=== PATIENT | male | born 1990 | race Caucasian/White ===

== ENCOUNTER 2017-09-30 18:26 | Emergency (ER) | payer OTHER ==
[~2017-09-30] VITALS: Ht 177.8 cm; Wt 63.5 kg
[~2017-09-30 18:26] MED LIST: PROVENTIL HFA6.7 GM INH
[2017-09-30] MEDS ORDERED: XANAX2 MG PO (18:50)
[2017-09-30] MEDS ORDERED: SUBOXONE 8 MG-1 EAC1 SL (18:51)
[2017-09-30] MEDS ORDERED: ZOFRAN ODT4 MG PO (21:28)
--- NOTE | 2017-10-01 07:18 | EKG ---
[facility] [address] [facility] [place] [address] Signed Sinus rhythm with occasional premature ventricular complexes Otherwise normal ECG No previous ECGs available Confirmed by TACOS DAWN MD ([id number]) on 10/01/2017 7:18:43 AM Electronically Signed By: TACOS DAWN MD 10/01/17 0718 PATIENT NAME: MARTIN HERNANDEZ Electrocardiogram DATE OF : 89 PHYSICIAN: TACOS DAWN MD REPORT #: [id number] REPORT IS CONFIDENTIAL AND NOT TO BE RELEASED WITHOUT AUTHORIZATION
== END 2017-09-30 21:52 | disposition home or self-care (01) ==
LOC: ED 18:26
PROC: 0T9B70Z Drainage of Bladder with Drainage Device, Via Natural or Artificial Opening (ICD-10-PCS; principal; 2017-09-30)
DX: F11.23 Opioid dependence with withdrawal (principal); F19.10 Other psychoactive substance abuse, uncomplicated
CPT/HCPCS: 36415; 51701; 71010; 80053; 84484; 85025; 93005; 93010; 96374; 99284; G0480; J2405; J7030

== ENCOUNTER 2018-04-15 13:23 | Emergency (ER) | payer OTHER ==
[~2018-04-15] VITALS: Ht 177.8 cm; Wt 63.5 kg
[~2018-04-15 13:23] MED LIST changes: +SUBOXONE 8 MG-1 EAC1 SL; +XANAX2 MG PO; +ZOFRAN ODT4 MG PO
== END 2018-04-15 15:04 | disposition left against medical advice (07) ==
LOC: ED 13:23
DX: Z53.21 Procedure and treatment not carried out due to patient leaving prior to being seen by health care provider (principal)

== ENCOUNTER 2018-07-18 04:58 | Emergency (ER) | payer OTHER ==
[~2018-07-18] VITALS: Ht 177.8 cm; Wt 68.0 kg
--- OUTSIDE RECORDS SUMMARY | ~2018-07-18 | XMS | Encounter Summary ---
Demographics + + + | Address | [address] | | | [place] [address] | + + + | Home Phone | | + + + | Preferred Language | Unknown | + + + | Marital Status | Single | + + + | Hinduism Affiliation | Unknown | + + + | Race | White | + + + | Ethnic Group | Not or | + + + Author + + + | Author | [facility] | + + + | Organization | [facility] | + + + | Address | Unknown | + + + | Phone | Unavailable | + + + Support + + +---------+ + | Name | Relationship | Address | Phone | + + +---------+ + | Eusebio Winston | ECON | Unknown | | + + +---------+ + Care Team Providers + +------+ + | Care Balance And Hairspring Assembler Name | Role | Phone | + +------+ + | Minerva Ca MD | PCP | | + +------+ + Reason for Visit + + + | Reason | Comments | + + + | New Patient Visit | Here to establish | + + + | Anxiety | | + + + Encounter Details +--------+---------+ + + + | Date | Type | Department | Care Team | Description | +--------+---------+ + + + | 07/08/ | Office | [facility] | Minerva Ca MD | Anxiety (Primary | | 2018 | Visit | Medicine [address] | Dx); Mild | | | | [address] [place], | [place] [address] | intermittent asthma | | | | [place] [address] | [phone] | without | | | | [phone] | | complication; | | | | | | Dysthymia; History | | | | | | of drug use | +--------+---------+ + + + Social History + +-------+ +--------+------+ | Tobacco Use | Types | Packs/Day | Years | Date | | | | | Used | | + +-------+ +--------+------+ | Never Smoker | | | | | + +-------+ +--------+------+ + +---+---+---+ | Smokeless Tobacco: | | | | | Never Used | | | | + +---+---+---+ + + | Comments: occassion | + + + + + | Sex Assigned at | Date Recorded | | | | + + + | Not on file | | + + + as of this encounter Last Filed Vital Signs + + + + | Vital Sign | Reading | Time Taken | + + + + | Blood Pressure | 126/80 | 07/08/2018 4:21 PM PDT | + + + + | Pulse | 61 | 07/08/2018 4:21 PM PDT | + + + + | Temperature | 36.9 C (98.4 F) | 07/08/2018 4:21 PM PDT | + + + + | Respiratory Rate | - | - | + + + + | Oxygen Saturation | 99% | 07/08/2018 4:21 PM PDT | + + + + | Inhaled Oxygen | - | - | | Concentration | | | + + + + | Weight | 64.8 kg (142 lb 12.8 | 07/08/2018 4:21 PM PDT | | | oz) | | + + + + | Height | - | - | + + + + | Body Mass Index | - | - | + + + + in this encounter Instructions Patient Instructions - Minerva Ca MD - 07/08/2018 4:20 PM PDTPlease let us know if the inhalers are expensive and we will see if we can help You. Exercise and healthy eating really help anxiety so do your best to keep up with that. Flovent steroid inhaler is twice daily. Please rinse mouth after use. in this encounter Progress Notes Minerva Ca MD - 07/08/2018 4:20 PM PDTFormatting of this note may be different from blanco martinez. SUBJECTIVE CC: Chief Complaint Patient presents with New Patient Visit Here to establish Anxiety HPI: Ike Montero is a 27 y.o. male living in the [facility]. Will be here a few months. in [facility] is retiring. Anxiety - buspar and celexa in the past. Off them for months. [place] [address] since he was a little kid. Gets too worked up. Gets overwhelmed. Worry's a lot. Transitioning to new job hoping that will help. Feels palpitations. Sometimes his heart is racing. Lately depressed waking up. Noticed that for a couple of years. No thoughts of self harm. Sometimes sleeps well. Wakes up and has bad dreams. Appetite - lost weight (was 170). Last job pretty active maybe wasn't eating enough. Diana y was tight so wasn't hardly buying food. Motivation is there - not a problem. When problems arise can't handle it. Went to ER was hyperventilating, panic attack, left w ithout being seen. His muscles were cramping. Has hope for the future. Likes fishing, hunting. Still able to enjoy things. Street drugs - opiates, buprenorphine, benzodiazepines - 4-5 months Pills, no IV drug use. REVIEW OF SYSTEMS: Review of Systems Constitutional: Positive for weight loss. Negative for chills and fever. HENT: Negative for hearing loss and tinnitus. Eyes: Negative for blurred vision and double vision. Respiratory: Positive for shortness of breath and wheezing. Negative for cough. Cardiovascular: Negative for chest pain. Palpitations with anxiety or random Gastrointestinal: Positive for blood in stool. Negative for constipation and diarrhea. Genitourinary: Negative for dysuria. Musculoskeletal: Negative for back pain and joint pain. Skin: Negative. Neurological: Negative for dizziness and headaches. Endo/Heme/Allergies: Negative for polydipsia. Psychiatric/Behavioral: Positive for depression. Negative for suicidal ideas. The patient i s nervous/anxious and has insomnia. Current Medications: Current Outpatient Prescriptions Medication Sig VENTOLIN HFA 90 mcg/actuation inhalation HFA aerosol inhaler No current facility-administered medications for this visit. Allergies/Adverse Drug Reactions: No Known Allergies Social History Substance Use Topics Smoking status: Never Smoker Smokeless tobacco: Never Used Alcohol use Not on file OBJECTIVE BP 126/80 | Pulse 61 | Temp (Src) 36.9 C (98.4 F) (Oral) | Wt 64.8 kg (142 lb 12.8 oz) | SpO2 99% There is no height or weight on file to calculate BMI. Physical Exam Constitutional: He is oriented to person, place, and time and well-developed, well-nourishe d, and in no distress. HENT: Head: Normocephalic and atraumatic. Eyes: EOM are normal. Neck: Neck supple. Cardiovascular: Normal rate, regular rhythm and normal heart sounds. Exam reveals no frict ion rub. No murmur heard. Pulmonary/Chest: Effort normal and breath sounds normal. No respiratory distress. He has no wheezes. Musculoskeletal: Normal range of motion. Neurological: He is alert and oriented to person, place, and time. Gait normal. Skin: Skin is warm and dry. Psychiatric: Poor eye contact, shifting in seat, constantly moving ASSESSMENT/PLAN We appreciate the opportunity of participating in Mr. Montero's care. Follow up in Family Medicine clinic in 1 month Ike was seen today for new patient visit and anxiety. Diagnoses and all orders for this visit: Anxiety Comments: citalopram 20mg daily and burpirone 10mg tid - this regimen worked well for him in the past . Declined BH at this time. Orders: - citalopram (CELEXA) 20 mg oral tablet; Take 1 tablet by mouth once daily. Indications : Anxiety with Depression - busPIRone 10 mg oral tablet; Take 1 tablet by mouth three times daily. Indications: G eneralized Anxiety Disorder Mild intermittent asthma without complication Comments: Inhaled steroid and albuterol prn. Orders: - VENTOLIN HFA 90 mcg/actuation inhalation HFA aerosol inhaler; Inhale 2 puffs by mouth every six hours as needed. Indications: asthma - fluticasone (FLOVENT HFA) 110 mcg/actuation inhalation HFA aerosol inhaler; Inhale 1 puff by mouth two times daily. Indications: Maintenance Therapy for Asthma Dysthymia Comments: Anxiety more of an issue than depression. Low affect > 2 years. Celexa 20mg daily. Orders: - citalopram (CELEXA) 20 mg oral tablet; Take 1 tablet by mouth once daily. Indications : Anxiety with Depression History of drug use Comments: From chart review. Pt reports to being clean at this time. Lakeshia Lopez MA - 07/08/2018 4:20 PM PDTFormatting of this note may be different from the original. Ike Montero is a 27 y.o. male who is in clinic today alone. Chief Complaint Patient presents with New Patient Visit Here to establish Anxiety MARK ANTHONY Questionnaire Feeling nervous, anxious, or on edge: 2 Not being able to stop or control worryin Worrying too much about different things: 2 Having trouble relaxin Being so restless that it is hard to sit still: 2 Becoming easily annoyed or irritable: 1 Feeling afraid as if something awful might happen: 1 TOTAL SCORE (5=mild; 10=moderate; 15=severe): 12 in this encounter Plan of Treatment +--------+---------+ + + + | Date | Type | Specialty | Care Team | Description | +--------+---------+ + + + | 08/05/ | Office | Family Practice | Minerva Ca MD | | | 2017 | Visit | | [address] [place] [address] The | | | | | | [place] [address] | | | | | | [phone] | | | | | | | | +--------+---------+ + + + as of this encounter Visit Diagnoses + + | Diagnosis | + + | Anxiety - Primary | + + | Anxiety state, unspecified | + + | Mild intermittent asthma without complication | + + | Unspecified asthma | + + | Dysthymia | + + | Dysthymic disorder | + + | History of drug use | + +"
--- OUTSIDE RECORDS SUMMARY | ~2018-07-18 | XMS | Clinical Summary ---
Demographics + + + | Address | [address] | | | [place] [address] | + + + | Home Phone | | + + + | Preferred Language | Unknown | + + + | Marital Status | Single | + + + | Pentecostal Affiliation | Unknown | + + + | Race | White | + + + | Ethnic Group | Not or | + + + Author + + + | Author | [facility] | + + + | Organization | [facility] | + + + | Address | Unknown | + + + | Phone | Unavailable | + + + Support + + +---------+ + | Name | Relationship | Address | Phone | + + +---------+ + | Eusebio Hernandez | ECON | Unknown | | + + +---------+ + Care Team Providers + +------+ + | Care Harp Regulator Name | Role | Phone | + +------+ + | Minerva Ca MD | PP | | + +------+ + Source Comments ALBERT is fully live on both [facility] and [facility] InPatient.[facility] Allergies No Known Allergies Current Medications + + +---------+---------+------+------+-------+ | Prescription | Sig. | Disp. | Refills | Star | End | Statu | | | | | | t | Date | s | | | | | | Date | | | + + +---------+---------+------+------+-------+ | VENTOLIN HFA 90 | Inhale 2 puffs by | 1 | 1 | 09/ | | Activ | | mcg/actuation | mouth every six | Inhaler | | 2/20 | | e | | inhalation HFA | hours as needed. | | | 18 | | | | aerosol | Indications: asthma | | | | | | | inhalerIndications: | | | | | | | | asthma | | | | | | | + + +---------+---------+------+------+-------+ | citalopram | Take 1 tablet by | 30 | 1 | 09/1 | | Activ | | (CELEXA) 20 mg oral | mouth once daily. | tablet | | 2/20 | | e | | tabletIndications: | Indications: Anxiety | | | 18 | | | | Anxiety with | with Depression | | | | | | | Depression | | | | | | | + + +---------+---------+------+------+-------+ | busPIRone 10 mg | Take 1 tablet by | 90 | 1 | / | | Activ | | oral | mouth three times | tablet | | 2/20 | | e | | tabletIndications: | daily. Indications: | | | 18 | | | | Generalized Anxiety | Generalized Anxiety | | | | | | | Disorder | Disorder | | | | | | + + +---------+---------+------+------+-------+ | fluticasone | Inhale 1 puff by | 1 | 1 | 09/1 | | Activ | | (FLOVENT HFA) 110 | mouth two times | Inhaler | | 2/20 | | e | | mcg/actuation | daily. Indications: | | | 18 | | | | inhalation HFA | Maintenance Therapy | | | | | | | aerosol | for Asthma | | | | | | | inhalerIndications: | | | | | | | | Maintenance Therapy | | | | | | | | for Asthma | | | | | | | + + +---------+---------+------+------+-------+ Active Problems + + + | Problem | Noted Date | + + + | Mild intermittent asthma without complication | 07/08/2018 | + + + | Anxiety | 07/08/2018 | + + + | Dysthymia | 07/08/2018 | + + + | History of drug use | 07/08/2018 | + + + Encounters +--------+---------+ + + + | Date | Type | Specialty | Care Team | Description | +--------+---------+ + + + | 07/08/ | Office | | Minerva Ca MD | Anxiety (Primary | | 2018 | Visit | | | Dx); Mild | | | | | | intermittent asthma | | | | | | without | | | | | | complication; | | | | | | Dysthymia; History | | | | | | of drug use | +--------+---------+ + + + from Last 3 Months Immunizations + + + + | Name | Dates Previously Given | Next Due | + + + + | DTaP | 07/29/1995, 01/09/1993, 05/16/1992, | | | | 01/11/1992, 1991 | | + + + + | HepB-Peds | 11/12/2005, 01/08/2005, 11/13/2004 | | + + + + | Hib-HbOC | 01/09/1993, 05/16/1992, 01/11/1992, | | | | 1991 | | + + + + | MMR | 11/13/2004, 01/09/1993 | | + + + + | Polio-Oral | 07/29/1995, 01/09/1993, 01/11/1992, | | | | 1991 | | + + + + | Td (adult), 2 Lf | 01/08/2005 | | | tetanus toxoid, | | | | preservative free, | | | | adsorbed | | | + + + + Family History + + +------+ + | Medical History | Relation | Name | Comments | + + +------+ + | Hypertension | Brother | | | + + +------+ + | Thyroid disease | Father | | | + + +------+ + + +------+--------+ + | Relation | Name | Status | Comments | + +------+--------+ + | Brother | | Alive | | + +------+--------+ + | Father | | Alive | | + +------+--------+ + | Mother | | Alive | | + +------+--------+ + Social History + +-------+ +--------+------+ | [...] on file | | + + + Last Filed Vital Signs + + + [...] | - | + + + + Plan of Treatment +--------+---------+ + + + | Date | Type | Specialty | Care Team | Description | +--------+---------+ + + + | 08/05/ | Office | | Minerva Ca MD | | | 2017 | Visit | | [address] [place] [address] The | | | | | | [place] [address] | | | | | | [phone] | | | | | | | | +--------+---------+ + + + + + + + + | Health Maintenance | Due Date | Last Done | Comments | + + + + + | HIV SCREEN | | | | | | 1 | | | + + + + + | Diphtheria,Tetanus,P | | 01/08/2005, 07/29/1995, | | | ertussis | 5 | 01/09/1993, Additional history | | | (DTaP/Tdap/Td) (6 - | | exists | | | Tdap) | | | | + + + + + | INFLUENZA VACCINE | | | | | (FLU SHOT) | 8 | | | + + + + + | DEPRESSION | | 07/08/2018, 07/08/2018 | | | ASSESSMENT (PHQ9) | 9 | | | + + + + + | SUBSTANCE ABUSE | | 07/08/2018 | | | SCREENING | 9 | | | + + + + + Results Not on filefrom Last 3 Months Insurance + +--------+ +--------+-------+---------+ | Payer | Benefi | Subscriber | Type | Phone | Address | | | t Plan | ID | | | | | | / | | | | | | | Group | | | | | + +--------+ +--------+-------+---------+ | SENIOR BUDGET ANALYST MEDICAID | SENIOR BUDGET ANALYST | xxxxxxxx | Medica | | | | | [place] | | id | | | | | [place] | | | | | + +--------+ +--------+-------+---------+ + +--------+ +--------+ + + | Guarantor Name | Accoun | Relation to | Date | Phone | Billing Address | | | t Type | Patient | of | | | | | | | | | | + +--------+ +--------+ + + | MARTIN HERNANDEZ | Person | Self | [birth year] | Home: | [address] | | [place] | molly/Daryl | | 1989 | [phone] | [place] | | | kevin | | | [phone] | + +--------+ +--------+ + +"
--- OUTSIDE RECORDS SUMMARY | ~2018-07-18 | XMS | Encounter Summary ---
Demographics + + + | Address | [address] | | | [place] [address] | + + + | Home Phone | | + + + | Preferred Language | Unknown | + + + | Marital Status | Single | + + + | Gnosticist Affiliation | Unknown | + + + [...] Team Providers + +------+ + | Care Nail Specialist Name | Role | Phone | + [...] Mild | | | | [address] [place], | [place] [address] | intermittent asthma | | | | [place] [address] | [phone] | without | | | | [phone] | | complication; | | | | [...] a 27 y.o. male living in the [facility]. Will be here a few months. in [facility] is retiring. Anxiety - buspar and celexa in the past. Off them for months. [place] that [address] since he was a little [...] 2017 | Visit | | [address] [place] [address] The | | | | | | [place] [address] | | | | | | [phone] | | | | | | | [...]
--- OUTSIDE RECORDS SUMMARY | ~2018-07-18 | XMS | Clinical Summary ---
Demographics + + + | Address | [address] [facility] | | | [place] [address] | + + + | Home Phone [...] Team Providers + +------+ + | Care Form Setter [employer] Forms Name | Role | Phone | + +------+ + | Minerva Ca MD | PP | | + +------+ + Source Comments ALBERT is fully live on both [facility] Ambulatory and [facility] InPatient.[facility] Allergies No Known Allergies Current Medications + [...] 2017 | Visit | | [address] [place] [address] The | | | | | | [place] [address] | | | | | | [phone] | | | | | | | [...] | | | + +--------+ +--------+-------+---------+ | LINE HAUL DRIVER MEDICAID | LINE [employer]UL DRIVER | xxxxxxxx | Medica | | | [...] | | | [place] | | | [phone] | [phone] | + +--------+ +--------+ + +"
--- OUTSIDE RECORDS SUMMARY | 2018-07-18 05:04 | XMS ---
PreManage Notification: MARTIN HERNANDEZ Security Customer Solutions Representative Events 1 event(s) in the past 18 months Most recent security events: Elopement at [facility] 04/15/2018 13:23 - Patient eloped before treatment completed. Details: LWBS CRITERIA MET - Group Notification CARE PROVIDERS DANI TRIANA [facility] 07/08/2018-Current PHONE: Unknown DANI TRIANA Primary Care 07/08/2018-Current PHONE: [phone] Lio Delgado MD Treatment Current PHONE: Unknown Jose has no Care Guidelines for this patient. E.D. VISIT COUNT (12 MO.) 3 [facility] Umana TOTAL 3 NOTE: Visits indicate total known visits. ED/UCC VISIT TRACKING (12 MO.) 07/18/2018 04:59 [facility] [place] TYPE: Emergency COMPLAINT: - ISSUES SLEEPING/RESTLESS LEGS 04/15/2018 13:23 [facility] [place] TYPE: Emergency COMPLAINT: - ANXIETY ISSUES DIAGNOSES: - Procedure and treatment not carried out due to patient leaving prior to being seen by health care provider 09/30/2017 18:[address] [facility] [place] TYPE: Emergency COMPLAINT: - VOMITING DIAGNOSES: - Opioid dependence with withdrawal - Other psychoactive substance abuse, uncomplicated - Panic disorder [episodic paroxysmal anxiety] INPATIENT VISIT TRACKING (12 MO.) No inpatient visits to display in this time frame [email or web address]
[2018-07-18] MEDS ORDERED: BUSPIRONE HCL10 MG PO (05:07)
[2018-07-18] MEDS ORDERED: CELEXA20 MG PO (05:07)
[2018-07-18] MEDS ORDERED: VISTARIL25 MG PO (05:39)
== END 2018-07-18 05:56 | disposition home or self-care (01) ==
LOC: ED 04:58
DX: F11.23 Opioid dependence with withdrawal (principal); Z87.891 Personal history of nicotine dependence; Z79.899 Other long term (current) drug therapy
CPT/HCPCS: 99283

== ENCOUNTER 2018-11-19 20:54 | Observation (INO) | payer OTHER ==
[~2018-11-19] VITALS: Ht 177.8 cm; Wt 82.5 kg
[~2018-11-19 20:54] MED LIST changes: +BUSPIRONE HCL10 MG PO; +CELEXA20 MG PO; +L-THEANINE25 GM PO; +VENTOLIN HFA18 GM INH; +VISTARIL25 MG PO
--- OUTSIDE RECORDS SUMMARY | 2018-11-19 20:56 | XMS ---
PreManage Notification: MARTIN HERNANDEZ Security Resource Specialist Events 1 event(s) in the past 18 months Most recent security events: Elopement at [facility] 04/15/2018 13:23 - Patient eloped before treatment completed. Details: LWBS CRITERIA MET - Group Notification CARE PROVIDERS MARILOU WEBB Physician Pot Room Supervisor 07/20/2018-Current PHONE: [phone] DANI TRIANA [facility] 07/08/2018-Current PHONE: [phone] DANI TRIANA Primary Care 07/08/2018-Current PHONE: Unknown Jose has no Care Guidelines for this patient. E.D. VISIT COUNT (12 MO.) [address] [facility] TOTAL 4 NOTE: Visits indicate total known visits. ED/UCC VISIT TRACKING (12 MO.) 11/19/2018 20:54 [facility] [place] TYPE: Emergency COMPLAINT: - UNRESPONSIVE 10/04/2018 20:14 [facility] [place] TYPE: Emergency COMPLAINT: - UNRESPONSIVE OD 07/18/2018 04:59 [facility] [place] TYPE: Emergency COMPLAINT: - ISSUES SLEEPING/RESTLESS LEGS DIAGNOSES: - Opioid dependence with withdrawal - Insomnia, unspecified - Other usp (current) drug therapy - Personal history of nicotine dependence 04/15/2018 13:23 [facility] [place] TYPE: Emergency COMPLAINT: - ANXIETY ISSUES DIAGNOSES: - Procedure and treatment not carried out due to patient leaving prior to being seen by health care provider INPATIENT VISIT TRACKING (12 MO.) 10/04/2018 23:07 [facility] [place] TYPE: Critical Care COMPLAINT: - OVERDOSE DIAGNOSES: - Anxiety disorder, unspecified - Toxic encephalopathy - Poisoning by unspecified antiepileptic and sedative-hypnotic drugs, accidental (unintentional), initial encounter - Acute respiratory failure with hypoxia - Acute respiratory failure with hypercapnia - Hypomagnesemia - Personal history of nicotine dependence - Acute respiratory failure with hypoxia - Toxic encephalopathy - Anxiety disorder, unspecified - Personal history of nicotine dependence - Acute respiratory failure with hypercapnia - Hypomagnesemia - Anuria and oliguria - Anuria and oliguria [email or web address]
[2018-11-20] MEDS ORDERED: WELLBUTRIN XL150 MG PO (13:39)
[2018-11-20] MEDS ORDERED: METOPROLOL TART25 MG PO (13:40)
[2018-11-20] MEDS ORDERED: BUPROPION HCL75 MG PO (13:41)
--- NOTE | 2018-11-20 20:04 | EKG ---
[facility] [address] [place] [address] Signed Sinus rhythm with occasional premature ventricular complexes Otherwise normal ECG When compared with ECG of 04-OCT-2018 20:17, Borderline criteria for Inferior infarct are no longer present Confirmed by CAROL CHEN MD ([id number]) on 11/20/2018 8:04:06 PM Electronically Signed By: CAROL CHEN MD 11/20/182003 PATIENT NAME: MARTIN HERNANDEZ Electrocardiogram DATE OF : 89 PHYSICIAN: CAROL CHEN MD REPORT #: [id number] REPORT IS CONFIDENTIAL AND NOT TO BE RELEASED WITHOUT AUTHORIZATION
[2018-11-21] MEDS ORDERED: NAPROXEN500 MG PO (08:25)
== END 2018-11-21 12:00 | disposition home or self-care (01) ==
LOC: ED 20:54 → CCU 23:22 → ED 23:22 → CCU 23:23 → DSVR 23:30 → CCU 23:30 → DSVR 23:50 → CCU 23:50 → MS 11-20 09:42 → CCU 11-20 09:42 → MS 11-20 09:42 → CCU 11-20 09:43 → MS 11-20 09:43 → CCU 11-20 09:43
PROVIDERS: ADMIT Internal Medicine
PROC: 5A09357 Assistance with Respiratory Ventilation, Less than 24 Consecutive Hours, Continuous Positive Airway Pressure (ICD-10-PCS; principal; 2018-11-19)
DX: T42.6X1A Poisoning by other antiepileptic and sedative-hypnotic drugs, accidental (unintentional), initial encounter (principal); J96.02 Acute respiratory failure with hypercapnia; G92 Toxic encephalopathy; S93.402A Sprain of unspecified ligament of left ankle, initial encounter; F19.10 Other psychoactive substance abuse, uncomplicated; F41.8 Other specified anxiety disorders; X58.XXXA Exposure to other specified factors, initial encounter; Z79.899 Other long term (current) drug therapy; Z87.891 Personal history of nicotine dependence
CPT/HCPCS: 36415; 36600; 51702; 70450; 71260; 72125; 73610; 74177; 80053; 80176; 81001; 82150; 82550; 82803; 83690; 83735; 85025; 86850; 86900; 86901; 93005; 93010; 94660; 96372; 96374; 96375; 96376; 99285-25; G0378; G0480; J1650; J1885; J2405; J7120; Q9967

== ENCOUNTER 2021-03-31 14:43 | Emergency (ER) | payer OTHER ==
[~2021-03-31] VITALS: Ht 177.8 cm; Wt 90.7 kg
[~2021-03-31 14:43] MED LIST changes: +BUPROPION HCL75 MG PO; +METOPROLOL TART25 MG PO; +NAPROXEN500 MG PO; +WELLBUTRIN XL150 MG PO
--- OUTSIDE RECORDS SUMMARY | 2021-03-31 14:46 | XMS ---
PreManage Notification: MARTIN HERNANDEZ Security Continuing Education Specialist Events No recent Security Events currently on file CRITERIA MET - Group Notification - PDMP CARE PROVIDERS MARILOU WEBB Physician Director [facility] 07/20/2018-Current PHONE: [phone] DANI TRIANA [facility] 07/08/2018-Current PHONE: [phone] Jose has no Care Guidelines for this patient. Dina VISIT COUNT (12 MO.) 1 [facility] Umana TOTAL 1 NOTE: Visits indicate total known visits. ED/UCC VISIT TRACKING (12 MO.) 03/31/2021 14:44 [facility] [place] TYPE: Emergency COMPLAINT: - SOB INPATIENT VISIT TRACKING (12 MO.) No inpatient visits to display in this time frame [email or web address]
[2021-03-31] MEDS ORDERED: VENTOLIN HFA18 GM INH (16:26)
[2021-03-31] MEDS ORDERED: ZITHROMAX250 MG PO (16:26)
[2021-03-31] MEDS ORDERED: PREDNISONE20 MG PO (16:26)
== END 2021-03-31 16:46 | disposition home or self-care (01) ==
LOC: ED 14:43
DX: J18.9 Pneumonia, unspecified organism (principal); F41.9 Anxiety disorder, unspecified; Z87.891 Personal history of nicotine dependence; Z79.899 Other long term (current) drug therapy
CPT/HCPCS: 71045; 94640; 99284-25; A9270-GY; J1100

== ENCOUNTER 2021-09-03 08:25 | Emergency (ER) | payer OTHER ==
[~2021-09-03] VITALS: Ht 177.8 cm; Wt 89.5 kg
[~2021-09-03 08:25] MED LIST changes: +PREDNISONE20 MG PO; +ZITHROMAX250 MG PO
--- OUTSIDE RECORDS SUMMARY | 2021-09-03 08:32 | XMS ---
PreManage Notification: MARTIN HERNANDEZ Security Trailer Rental Clerk Events No recent Security Events currently on file CRITERIA MET - PDMP - Group Notification CARE PROVIDERS OREN SOUSA Emergency Medicine 04/02/2021-Current PHONE: [phone] MARILOU WEBB Physician Home Visitor 07/20/2018-Current PHONE: [phone] DANI TRIANA [facility] 07/08/2018-Current PHONE: [phone] Jose has no Care Guidelines for this patient. Care History Medical/Surgical 04/02/2021 [facility] - Patient is currently established with [facility]. If patient is seen in the ED during business hours. Please contact [facility]Ws at [facility]. Care Recommendation: If this patient has had 5 or more Emergency Department visits in the last 12 months.\T\nbsp; Patient will require education on the scope and purpose of the ED as an acute care provider not a Primary Care Provider and should not be utilized for chronic conditions.\T\nbsp; These are guidelines and the provider should exercise clinical judgment when providing care. E.D. VISIT COUNT (12 MO.) 2 [facility] Umana TOTAL 2 NOTE: Visits indicate total known visits. ED/UCC VISIT TRACKING (12 MO.) 09/03/2021 08:26 [facility] [place] TYPE: Emergency COMPLAINT: - HEART CONDITION, SHAKING, DEHYDRATED 03/31/2021 14:[address] [facility] [place] TYPE: Emergency COMPLAINT: - SOB DIAGNOSES: - Pneumonia, unspecified organism - Personal history of nicotine dependence - Anxiety disorder, unspecified - Other stringing machine tender (current) drug therapy - Shortness of breath INPATIENT VISIT TRACKING (12 MO.) No inpatient visits to display in this time frame [id number]
--- NOTE | 2021-09-04 17:05 | EKG ---
[facility] [address] [facility] [place], [place] [address] Signed Normal sinus rhythm Normal ECG When compared with ECG of 20-NOV-2018 00:52, premature ventricular complexes are no longer present Confirmed by MARICEL MERAZ DO ([id number]) on 09/04/2021 5:04:55 PM Electronically Signed By: MARICEL MERAZ DO 09/04/21 1705 PATIENT NAME: DAVIDMARTIN PEREZ Electrocardiogram DATE OF : 89 PHYSICIAN: MARICEL MERAZ DO REPORT #: [id number] REPORT IS CONFIDENTIAL AND NOT TO BE RELEASED WITHOUT AUTHORIZATION
== END 2021-09-03 11:32 | disposition home or self-care (01) ==
LOC: ED 08:25
DX: F10.180 Alcohol abuse with alcohol-induced anxiety disorder (principal); F10.139 Alcohol abuse with withdrawal, unspecified; J45.909 Unspecified asthma, uncomplicated; Z79.899 Other long term (current) drug therapy
CPT/HCPCS: 80053; 83690; 85025; 93005; 93010; 96374; 96376; 99285-25; G0480; J2060; J7030